=== PATIENT | female | born 1960 | race Two or more races ===

== ENCOUNTER → 2023-06-23 | Outpatient (CLI) | payer OTHER ==
[~2023-06-23] MED LIST: REGADENOSON 0.4 MG/5 ML PF SYRINGE IVP ONE; SESTAMIBI TC99M/UD ISOTOPE 1 EA INJ INJ ONE; SESTAMIBI TC99M/UD ISOTOPE 1 EA INJ ONE
[2023-06-23] MEDS: REGADENOSON 0.4 MG/5 ML PF SYRINGE IVP ONE (13:07)
== END | disposition home or self-care (01) ==
LOC: CARDMN 08:18
PROVIDERS: ATTEND Internal Medicine Cardiovascular Disease
DX: I08.0 Rheumatic disorders of both mitral and aortic valves (principal); R07.9 Chest pain, unspecified; I25.9 Chronic ischemic heart disease, unspecified
CPT/HCPCS: 78452; 93306; A9500; J2785